=== PATIENT | female | born 1955 | race African-American/Black ===

== ENCOUNTER 2022-04-14 20:10 | Inpatient (IN) | payer OTHER ==
[2022-04-14] MEDS ORDERED: VANCOMYCIN 1 GM in D5W (PRE-DOCKED) 1,000 MG/250 ML IVPB ONE (21:55)
[2022-04-14] MEDS ORDERED: PIPERACILLIN/TAZOB 4.5 GM 4.5 GM in DEXTROSE 5%-WATER 100 ML IVPB ONE (21:55)
[2022-04-14] MEDS ORDERED: PIPERACILLIN/TAZOB 4.5 GM 4.5 GM/100 ML BAG IVPB ONE (23:13)
[2022-04-14 23:17] LABS: BASO % 1.4 % (0-2.0); EOS % 5.3 % (0-4.5); HEMATOCRIT 29.9 % (32.4-45.2); HEMOGLOBIN 9.7 GM/dL (10.7-15.3); LYMPH % 12.3 % (8-40); MCH 24.1 pg (25.7-33.7); MCHC 32.3 g/dl (32.0-36.0); MEAN CELL VOLUME 74.6 fl (80-96); MEAN PLT VOLUME 8.6 fl (7.5-11.1); MONO % 8.2 % (3.8-10.2); NEUT % 72.8 % (42.8-82.8); PLATELET COUNT 265 10^3/uL (134-434); RBC 4.01 M/mm3 (3.60-5.2); RDW 17.8 % (11.6-15.6); WHITE BLOOD COUNT 7.1 K/mm3 (4.0-10.0)
[2022-04-14 23:24] LABS: INR 1.22 (0.83-1.09); PROTHROMBIN TIME (PATIENT) 14.1 SEC (9.7-13.0)
[2022-04-14 23:26] LABS: ACTIVATED PTT 40.3 SECONDS (25.2-36.5)
[2022-04-14] MEDS ORDERED: RAPID SEQUENCE INTUBATION KIT NR ONE (23:27)
[2022-04-14] MEDS ORDERED: PROPOFOL 1,000,000 MCG/100 ML VIAL ONE (23:29)
[2022-04-14 23:35] LABS: CHLORIDE 119 mmol/L (98-107); SODIUM 142 mmol/L (136-145)
[2022-04-14 23:37] LABS: CALCIUM 7.9 mg/dL (8.5-10.1)
[2022-04-14 23:38] LABS: ALBUMIN 2.9 g/dl (3.4-5.0); ANION GAP 7 MMOL/L (8-16); BLOOD UREA NITROGEN 83.2 mg/dL (7-18); CO2 16 mmol/L (21-32); GLUCOSE,RANDOM 106 mg/dL (74-106)
[2022-04-14 23:41] LABS: CREATININE 3.6 mg/dL (0.55-1.3); SGOT/AST 25 U/L (15-37); SGPT/ALT 27 U/L (13-61)
[2022-04-14 23:43] LABS: BILIRUBIN,TOTAL 0.4 mg/dL (0.2-1); TOT PROT 8.2 g/dl (6.4-8.2)
[2022-04-14 23:44] LABS: ALK PHOS 475 U/L (45-117)
[2022-04-14 23:46] LABS: N-TERMINAL BNP 30063.4 pg/ml (5-125)
[2022-04-14 23:56] LABS: ERYTHROCYTE SEDIMENTATION RATE 51 mm/hr (0-30)
[2022-04-15] MEDS: PROPOFOL 1,000,000 MCG/100 ML VIAL IVPB SCH (00:01)
[2022-04-15] MEDS ORDERED: MIDAZOLAM IN 0.9 % SOD.CHLORID 1 MG/1 ML PLAST..BAG ONE (00:34)
[2022-04-15] MEDS ORDERED: FENTANYL NS IVPB 500 MCG/100 ML BAG IVPB ONE (00:35)
[2022-04-15] MEDS ORDERED: VANCOMYCIN 1 GM/200 ML PREMIX BAG IVPB ONE (01:00)
[2022-04-15] MEDS ORDERED: FUROSEMIDE INJECTION 100 MG in SODIUM CHLORIDE 90 ML IVPB SCH (01:00)
[2022-04-15] MEDS: FENTANYL NS IVPB 500 MCG/100 ML BAG IVPB SCH ×3 (01:21→21:00)
[2022-04-15] MEDS ORDERED: METOLAZONE 5 MG TABLET NR STA (07:26)
[2022-04-15 09:11] LABS: HEMATOCRIT 24.1 % (32.4-45.2); HEMOGLOBIN 7.7 GM/dL (10.7-15.3); MCH 23.8 pg (25.7-33.7); MCHC 31.8 g/dl (32.0-36.0); MEAN CELL VOLUME 74.9 fl (80-96); MEAN PLT VOLUME 8.6 fl (7.5-11.1); PLATELET COUNT 208 10^3/uL (134-434); RBC 3.22 M/mm3 (3.60-5.2); RDW 17.5 % (11.6-15.6); WHITE BLOOD COUNT 8.3 K/mm3 (4.0-10.0)
[2022-04-15 09:19] LABS: INR 1.37 (0.83-1.09); PROTHROMBIN TIME (PATIENT) 15.8 SEC (9.7-13.0)
[2022-04-15 09:22] LABS: ACTIVATED PTT 36.2 SECONDS (25.2-36.5)
[2022-04-15 09:43] LABS: MAGNESIUM 2.2 mg/dL (1.8-2.4)
[2022-04-15 09:44] LABS: BLOOD UREA NITROGEN 83.2 mg/dL (7-18)
[2022-04-15 09:46] LABS: CREATININE 3.5 mg/dL (0.55-1.3); PHOSPHOROUS 4.6 mg/dL (2.5-4.9)
[2022-04-15 09:47] LABS: CALCIUM 7.2 mg/dL (8.5-10.1)
[2022-04-15 09:51] LABS: N-TERMINAL BNP 29991.4 pg/ml (5-125)
[2022-04-15] MEDS ORDERED: PIPERACILLIN/TAZOB 4.5 GM 4.5 GM in DEXTROSE 5%-WATER 100 ML IVPB SCH (11:00)
[2022-04-15 11:03] LABS: ARTERIAL BLD GAS O2 SATURATION 98.6 % (95-98); ARTERIAL BLOOD GAS PO2 161.1 mmHg (80-100)
[2022-04-15 11:05] LABS: ALLENS TEST POSITIVE
[2022-04-15] MEDS: FUROSEMIDE 40 MG/4 ML INJECTABLE VIAL IVPUSH SCH ×2 (11:05→21:16)
[2022-04-15 11:06] LABS: VENT MODE A/C; VENT RATE 16
[2022-04-15] MEDS: MUPIROCIN 2% TOPICAL OINTMENT FOR DECOLONIZATION NS SCH ×2 (11:11→21:15)
[2022-04-15] MEDS: PANTOPRAZOLE SODIUM 40 MG VIAL IVPUSH SCH (11:11)
[2022-04-15] MEDS: INSULIN SLIDING SCALE (NOVOLOG) 1 VIAL SQ SCH ×3 (11:28→21:16)
[2022-04-15] MEDS ORDERED: SODIUM BICARBONATE 8.4% 50 MEQ/50 ML DISP.SYRIN IVPUSH ONE (11:30)
[2022-04-15] MEDS ORDERED: LACTULOSE 20 GM/30 ML UDC (FOR ORAL USE ONLY) PO PRN (11:37)
[2022-04-15] MEDS ORDERED: PIPERACILLIN/TAZOB 2.25 GM 2.25 GM in DEXTROSE 5%-WATER - 50 ML IVPB SCH (11:45)
[2022-04-15] MEDS ORDERED: SODIUM BICARBONATE 8.4% - 150 MEQ in DEXTROSE 5%-WATER - 950 ML IVPB ONE (12:00)
[2022-04-15 12:31] LABS: BILIRUBIN,DIRECT 0.2 mg/dL (0.0-0.2)
[2022-04-15 12:33] LABS: BILIRUBIN,TOTAL 0.3 mg/dL (0.2-1)
[2022-04-15 12:38] LABS: ALBUMIN 2.2 g/dl (3.4-5.0); TOT PROT 6.1 g/dl (6.4-8.2)
[2022-04-15] MEDS ORDERED: SODIUM BICARBONATE 8.4% 50 MEQ/50 ML DISP.SYRIN IVPUSH SCH (13:30)
[2022-04-15 13:44] LABS: ARTERIAL BLOOD GAS BASE EXCESS -11.5 mmol/L (-2-2); ARTERIAL BLOOD GAS PO2 175.1 mmHg (80-100); ARTERIAL BLOOD GAS pH 7.275 (7.350-7.450)
[2022-04-15 13:46] LABS: ALLENS TEST POSITIVE
[2022-04-15 13:47] LABS: VENT MODE A/C; VENT RATE 16
[2022-04-15] MEDS ORDERED: HEPARIN NA (PORCINE) 5,000 UNITS/ML 1ML VIAL SQ SCH (14:00)
[2022-04-15] MEDS ORDERED: INSULIN (NOVOLOG) ASPART 100 UNITS/ML 10ML VIAL ONE (14:21)
[2022-04-15] MEDS: PIPERACILLIN/TAZOB 2.25 GM 2.25 GM in DEXTROSE 5%-WATER - 50 ML IVPB SCH ×2 (15:05→21:15)
[2022-04-15 18:00] LABS: BASO % 0.6 % (0-2.0); EOS % 5.3 % (0-4.5); HEMATOCRIT 26.5 % (32.4-45.2); HEMOGLOBIN 8.5 GM/dL (10.7-15.3); LYMPH % 9.6 % (8-40); MCHC 32.2 g/dl (32.0-36.0); MEAN CELL VOLUME 74.6 fl (80-96); MEAN PLT VOLUME 8.6 fl (7.5-11.1); MONO % 10.4 % (3.8-10.2); NEUT % 74.1 % (42.8-82.8); PLATELET COUNT 206 10^3/uL (134-434); RBC 3.55 M/mm3 (3.60-5.2); RDW 17.8 % (11.6-15.6); WHITE BLOOD COUNT 6.7 K/mm3 (4.0-10.0)
[2022-04-15 18:19] LABS: CALCIUM 7.9 mg/dL (8.5-10.1)
[2022-04-15 18:20] LABS: ALBUMIN 2.4 g/dl (3.4-5.0); BLOOD UREA NITROGEN 86.1 mg/dL (7-18); MAGNESIUM 2.2 mg/dL (1.8-2.4)
[2022-04-15] MEDS: LACTULOSE 20 GM/30 ML UDC (FOR ORAL USE ONLY) GT SCH ×2 (18:20→21:15)
[2022-04-15 18:23] LABS: CREATININE 3.6 mg/dL (0.55-1.3)
[2022-04-15 18:25] LABS: BILIRUBIN,TOTAL 0.4 mg/dL (0.2-1)
[2022-04-15] MEDS: SODIUM BICARBONATE 8.4% 50 MEQ/50 ML DISP.SYRIN IVPUSH SCH (18:39)
[2022-04-15] MEDS: RIFAXIMIN 550 MG TABLET PO SCH (21:16)
[2022-04-15] MEDS: CHLORHEXIDINE GLUCONATE 4% CLEANSER FOR DECOLONIZATION TP SCH (21:16)
[2022-04-15] MEDS ORDERED: VANCOMYCIN 1 GM in D5W (PRE-DOCKED) 1,000 MG/250 ML IVPB ONE (23:33)
[2022-04-15] MEDS ORDERED: VANCOMYCIN/WATER FOR INJ (PEG) 1,000 MG/200 ML BAG IVPB ONE (23:45)
[2022-04-16] MEDS: PROPOFOL 1,000,000 MCG/100 ML VIAL IVPB SCH
[2022-04-16] MEDS: SODIUM BICARBONATE 8.4% 50 MEQ/50 ML DISP.SYRIN IVPUSH SCH ×3 (01:33→09:31)
[2022-04-16] MEDS: PIPERACILLIN/TAZOB 2.25 GM 2.25 GM in DEXTROSE 5%-WATER - 50 ML IVPB SCH ×4 (02:00→17:46)
[2022-04-16] MEDS: LACTULOSE 20 GM/30 ML UDC (FOR ORAL USE ONLY) GT SCH (05:47)
[2022-04-16] MEDS: INSULIN SLIDING SCALE (NOVOLOG) 1 VIAL SQ SCH ×4 (06:22→21:28)
[2022-04-16 06:50] LABS: ARTERIAL BLD GAS O2 SATURATION 99.1 % (95-98); ARTERIAL BLOOD GAS BASE EXCESS -8.5 mmol/L (-2-2); ARTERIAL BLOOD GAS PO2 176.9 mmHg (80-100); ARTERIAL BLOOD GAS pH 7.291 (7.350-7.450)
[2022-04-16 07:08] LABS: ALLENS TEST POSITIVE; VENT MODE 350
[2022-04-16 07:37] LABS: BASO % 0.9 % (0-2.0); EOS % 7.4 % (0-4.5); HEMATOCRIT 32.6 % (32.4-45.2); HEMOGLOBIN 10.5 GM/dL (10.7-15.3); LYMPH % 15.4 % (8-40); MCH 24.7 pg (25.7-33.7); MCHC 32.3 g/dl (32.0-36.0); MEAN CELL VOLUME 76.4 fl (80-96); MEAN PLT VOLUME 8.8 fl (7.5-11.1); MONO % 9.7 % (3.8-10.2); NEUT % 66.6 % (42.8-82.8); PLATELET COUNT 184 10^3/uL (134-434); RBC 4.27 M/mm3 (3.60-5.2); RDW 19.3 % (11.6-15.6); WHITE BLOOD COUNT 5.3 K/mm3 (4.0-10.0)
[2022-04-16 08:03] LABS: CALCIUM 7.8 mg/dL (8.5-10.1)
[2022-04-16 08:04] LABS: ALBUMIN 2.2 g/dl (3.4-5.0); BLOOD UREA NITROGEN 84.7 mg/dL (7-18)
[2022-04-16 08:05] LABS: PHOSPHOROUS 4.8 mg/dL (2.5-4.9)
[2022-04-16 08:07] LABS: BILIRUBIN,TOTAL 1.4 mg/dL (0.2-1); CREATININE 3.6 mg/dL (0.55-1.3); TOT PROT 6.3 g/dl (6.4-8.2)
[2022-04-16 08:13] LABS: INR 1.32 (0.83-1.09); PROTHROMBIN TIME (PATIENT) 15.2 SEC (9.7-13.0)
[2022-04-16 08:16] LABS: ACTIVATED PTT 38.2 SECONDS (25.2-36.5)
[2022-04-16] MEDS: MUPIROCIN 2% TOPICAL OINTMENT FOR DECOLONIZATION NS SCH ×2 (09:22→21:27)
[2022-04-16] MEDS: FUROSEMIDE 40 MG/4 ML INJECTABLE VIAL IVPUSH SCH ×2 (09:22→21:28)
[2022-04-16] MEDS: PANTOPRAZOLE SODIUM 40 MG VIAL IVPUSH SCH (09:22)
[2022-04-16] MEDS: RIFAXIMIN 550 MG TABLET PO SCH ×3 (09:24→21:43)
[2022-04-16] MEDS ORDERED: VANCOMYCIN/WATER FOR INJ (PEG) 750 MG/150 ML BAG IVPB SCH (10:00)
[2022-04-16] MEDS ORDERED: VANCOMYCIN 750 MG in DEXTROSE 5%-WATER - 150 ML IVPB SCH (10:00)
[2022-04-16] MEDS ORDERED: COLLAGENASE CLOSTRIDIUM HIST. 30 GRAMS TUBE TP SCH (10:00)
[2022-04-16 14:30] LABS: ARTERIAL BLD GAS O2 SATURATION 97.8 % (95-98); ARTERIAL BLOOD GAS BASE EXCESS -9.5 mmol/L (-2-2); ARTERIAL BLOOD GAS PO2 123.9 mmHg (80-100); ARTERIAL BLOOD GAS pH 7.219 (7.350-7.450)
[2022-04-16] MEDS: HEPARIN NA (PORCINE) 5,000 UNITS/ML 1ML VIAL SQ SCH ×2 (14:32→21:28)
[2022-04-16 14:34] LABS: ALLENS TEST POSITIVE
[2022-04-16 16:03] VITALS: BMI 22.6
[2022-04-16 17:14] LABS: ALLENS TEST POSITIVE; ARTERIAL BLD GAS O2 SATURATION 94.5 % (95-98); ARTERIAL BLOOD GAS BASE EXCESS -9.8 mmol/L (-2-2); ARTERIAL BLOOD GAS PO2 81.5 mmHg (80-100)
[2022-04-16] MEDS: CHLORHEXIDINE GLUCONATE 4% CLEANSER FOR DECOLONIZATION TP SCH (21:28)
[2022-04-16] MEDS: LACTULOSE 20 GM/30 ML UDC (FOR RECTAL USE ONLY) PR SCH (22:35)
[2022-04-17] MEDS: PIPERACILLIN/TAZOB 2.25 GM 2.25 GM in DEXTROSE 5%-WATER - 50 ML IVPB SCH ×3 (02:08→17:57)
[2022-04-17] MEDS: HEPARIN NA (PORCINE) 5,000 UNITS/ML 1ML VIAL SQ SCH ×4 (06:13→21:05)
[2022-04-17] MEDS: INSULIN SLIDING SCALE (NOVOLOG) 1 VIAL SQ SCH ×4 (06:14→21:51)
[2022-04-17 07:19] LABS: BASO % 0.3 % (0-2.0); HEMATOCRIT 30.8 % (32.4-45.2); HEMOGLOBIN 10.2 GM/dL (10.7-15.3); LYMPH % 5.4 % (8-40); MCH 25.1 pg (25.7-33.7); MEAN CELL VOLUME 75.9 fl (80-96); MEAN PLT VOLUME 8.8 fl (7.5-11.1); MONO % 5.7 % (3.8-10.2); NEUT % 87.6 % (42.8-82.8); PLATELET COUNT 173 10^3/uL (134-434); RBC 4.06 M/mm3 (3.60-5.2); RDW 19.4 % (11.6-15.6); WHITE BLOOD COUNT 12.7 K/mm3 (4.0-10.0)
[2022-04-17 07:40] LABS: CALCIUM 7.6 mg/dL (8.5-10.1)
[2022-04-17 07:41] LABS: ALBUMIN 2.4 g/dl (3.4-5.0); BLOOD UREA NITROGEN 83.8 mg/dL (7-18)
[2022-04-17 07:44] LABS: CREATININE 3.9 mg/dL (0.55-1.3); PHOSPHOROUS 5.8 mg/dL (2.5-4.9)
[2022-04-17 07:45] LABS: BILIRUBIN,TOTAL 0.8 mg/dL (0.2-1)
[2022-04-17] MEDS: LACTULOSE 20 GM/30 ML UDC (FOR RECTAL USE ONLY) PR SCH (08:26)
[2022-04-17] MEDS: SODIUM BICARBONATE 8.4% 50 MEQ/50 ML DISP.SYRIN IVPUSH SCH (09:52)
[2022-04-17] MEDS: FUROSEMIDE 40 MG/4 ML INJECTABLE VIAL IVPUSH SCH ×2 (09:52→21:05)
[2022-04-17] MEDS: MUPIROCIN 2% TOPICAL OINTMENT FOR DECOLONIZATION NS SCH ×2 (09:52→21:04)
[2022-04-17] MEDS: PANTOPRAZOLE SODIUM 40 MG VIAL IVPUSH SCH (09:52)
[2022-04-17] MEDS: RIFAXIMIN 550 MG TABLET PO SCH (11:19)
[2022-04-17] MEDS ORDERED: LACTULOSE 20 GM/30 ML UDC (FOR ORAL USE ONLY) PO PRN (12:52)
[2022-04-17] MEDS: SACUBITRIL/VALSARTAN 24 MG-26 MG TABLET PO SCH ×2 (15:06→21:05)
[2022-04-17] MEDS ORDERED: MELATONIN 5 MG TABLETS PO ONE (20:42)
[2022-04-17] MEDS: CHLORHEXIDINE GLUCONATE 4% CLEANSER FOR DECOLONIZATION TP SCH (21:08)
[2022-04-18] MEDS: PIPERACILLIN/TAZOB 2.25 GM 2.25 GM in DEXTROSE 5%-WATER - 50 ML IVPB SCH ×3 (01:01→18:34)
[2022-04-18] MEDS ORDERED: ACETAMINOPHEN 1000 MG/100 ML BAG IVPB ONE (02:50)
[2022-04-18] MEDS ORDERED: MELATONIN 5 MG TABLETS PO ONE (02:51)
[2022-04-18] MEDS ORDERED: QUEtiapine FUMARATE 25 MG TABLET PO ONE (03:11)
[2022-04-18] MEDS: HEPARIN NA (PORCINE) 5,000 UNITS/ML 1ML VIAL SQ SCH ×3 (06:15→22:17)
[2022-04-18] MEDS: INSULIN SLIDING SCALE (NOVOLOG) 1 VIAL SQ SCH ×4 (06:15→22:22)
[2022-04-18] MEDS ORDERED: FUROSEMIDE 40 MG/4 ML INJECTABLE VIAL ONE (08:00)
[2022-04-18] MEDS: PANTOPRAZOLE 40 MG TABLET PO SCH (09:07)
[2022-04-18] MEDS: SACUBITRIL/VALSARTAN 24 MG-26 MG TABLET PO SCH ×2 (09:07→23:18)
[2022-04-18] MEDS: SODIUM BICARBONATE 8.4% 50 MEQ/50 ML DISP.SYRIN IVPUSH SCH (09:08)
[2022-04-18] MEDS: LACTULOSE 20 GM/30 ML UDC (FOR ORAL USE ONLY) PO SCH (09:14)
[2022-04-18] MEDS ORDERED: VANCOMYCIN/WATER FOR INJ (PEG) 750 MG/150 ML BAG IVPB SCH ×2 (10:00)
[2022-04-18] MEDS ORDERED: INSULIN SLIDING SCALE (NOVOLOG) 1 VIAL SQ SCH (11:00)
[2022-04-18] MEDS: COLLAGENASE CLOSTRIDIUM HIST. 30 GRAMS TUBE TP SCH (12:51)
[2022-04-18] MEDS: FUROSEMIDE 40 MG/4 ML INJECTABLE VIAL IVPUSH SCH (15:02)
[2022-04-18] MEDS: THIAMINE HCL 100 MG TABLET (FP) PO SCH (17:00)
[2022-04-18] MEDS: AMINO ACIDS 4.25%/D5W 1,000 ML IV SCH (22:03)
[2022-04-18] MEDS: RIFAXIMIN 550 MG TABLET PO SCH (22:17)
[2022-04-19] MEDS: PIPERACILLIN/TAZOB 2.25 GM 2.25 GM in DEXTROSE 5%-WATER - 50 ML IVPB SCH ×3 (01:49→17:52)
[2022-04-19] MEDS: HEPARIN NA (PORCINE) 5,000 UNITS/ML 1ML VIAL SQ SCH ×4 (02:54→21:36)
[2022-04-19] MEDS: FUROSEMIDE 40 MG/4 ML INJECTABLE VIAL IVPUSH SCH ×2 (05:56→14:04)
[2022-04-19] MEDS: INSULIN SLIDING SCALE (NOVOLOG) 1 VIAL SQ SCH ×4 (06:01→21:36)
[2022-04-19] MEDS: SODIUM BICARBONATE 8.4% 50 MEQ/50 ML DISP.SYRIN IVPUSH SCH (09:54)
[2022-04-19] MEDS: SACUBITRIL/VALSARTAN 24 MG-26 MG TABLET PO SCH ×2 (09:57→21:36)
[2022-04-19] MEDS: MULTIVITAMINS (DAILY MVI) TABLET (FP) PO SCH (09:58)
[2022-04-19] MEDS: PANTOPRAZOLE 40 MG TABLET PO SCH (09:58)
[2022-04-19] MEDS: FOLIC ACID 1 MG TABLET (FP) PO SCH (09:58)
[2022-04-19] MEDS: RIFAXIMIN 550 MG TABLET PO SCH ×2 (09:58→21:36)
[2022-04-19] MEDS: THIAMINE HCL 100 MG TABLET (FP) PO SCH (09:58)
[2022-04-19] MEDS: COLLAGENASE CLOSTRIDIUM HIST. 30 GRAMS TUBE TP SCH (09:59)
[2022-04-19] MEDS: LACTULOSE 20 GM/30 ML UDC (FOR ORAL USE ONLY) PO SCH (09:59)
[2022-04-19 19:20] LABS: BASO % 0.4 % (0-2.0); EOS % 2.6 % (0-4.5); HEMATOCRIT 33.2 % (32.4-45.2); MCH 24.8 pg (25.7-33.7); MCHC 33.1 g/dl (32.0-36.0); MEAN CELL VOLUME 75.1 fl (80-96); MEAN PLT VOLUME 8.2 fl (7.5-11.1); MONO % 6.4 % (3.8-10.2); NEUT % 79.6 % (42.8-82.8); PLATELET COUNT 174 10^3/uL (134-434); RBC 4.42 M/mm3 (3.60-5.2); RDW 19.7 % (11.6-15.6); WHITE BLOOD COUNT 9.2 K/mm3 (4.0-10.0)
[2022-04-19 19:28] LABS: INR 1.4 (0.83-1.09); PROTHROMBIN TIME (PATIENT) 16.2 SEC (9.7-13.0)
[2022-04-19 19:43] LABS: CALCIUM 7.4 mg/dL (8.5-10.1)
[2022-04-19 19:45] LABS: MAGNESIUM 1.8 mg/dL (1.8-2.4)
[2022-04-19 19:47] LABS: CREATININE 4.5 mg/dL (0.55-1.3); PHOSPHOROUS 4.3 mg/dL (2.5-4.9)
[2022-04-19 19:48] LABS: BILIRUBIN,TOTAL 0.6 mg/dL (0.2-1); TOT PROT 6.6 g/dl (6.4-8.2)
[2022-04-19] MEDS: AMINO ACIDS 4.25%/D5W 1,000 ML IV SCH (21:35)
[2022-04-20] MEDS: PIPERACILLIN/TAZOB 2.25 GM 2.25 GM in DEXTROSE 5%-WATER - 50 ML IVPB SCH ×3 (02:08→18:12)
[2022-04-20] MEDS: FUROSEMIDE 40 MG/4 ML INJECTABLE VIAL IVPUSH SCH ×2 (06:26→14:43)
[2022-04-20] MEDS: INSULIN SLIDING SCALE (NOVOLOG) 1 VIAL SQ SCH ×3 (06:26→23:20)
[2022-04-20] MEDS: HEPARIN NA (PORCINE) 5,000 UNITS/ML 1ML VIAL SQ SCH ×4 (06:26→23:31)
[2022-04-20] MEDS: FOLIC ACID 1 MG TABLET (FP) PO SCH (10:04)
[2022-04-20] MEDS: SACUBITRIL/VALSARTAN 24 MG-26 MG TABLET PO SCH ×2 (10:04→23:20)
[2022-04-20] MEDS: LACTULOSE 20 GM/30 ML UDC (FOR ORAL USE ONLY) PO SCH (10:04)
[2022-04-20] MEDS: THIAMINE HCL 100 MG TABLET (FP) PO SCH (10:05)
[2022-04-20] MEDS: SODIUM BICARBONATE 8.4% 50 MEQ/50 ML DISP.SYRIN IVPUSH SCH (10:05)
[2022-04-20] MEDS: PANTOPRAZOLE 40 MG TABLET PO SCH (10:05)
[2022-04-20] MEDS: COLLAGENASE CLOSTRIDIUM HIST. 30 GRAMS TUBE TP SCH (10:05)
[2022-04-20] MEDS: MULTIVITAMINS (DAILY MVI) TABLET (FP) PO SCH (10:05)
[2022-04-20] MEDS: RIFAXIMIN 550 MG TABLET PO SCH ×2 (10:06→23:20)
[2022-04-20] MEDS ORDERED: metoPROLOL SUCCINATE 25 MG TAB.SR.24H (FP) PO SCH (16:00)
[2022-04-20] MEDS: METOPROLOL TARTRATE 25 MG TABLET (FP) PO SCH ×2 (16:18→23:20)
[2022-04-21] MEDS: AMINO ACIDS 4.25%/D5W 1,000 ML IV SCH ×2 (00:48)
[2022-04-21] MEDS: PIPERACILLIN/TAZOB 2.25 GM 2.25 GM in DEXTROSE 5%-WATER - 50 ML IVPB SCH ×3 (01:31→17:13)
[2022-04-21] MEDS: INSULIN SLIDING SCALE (NOVOLOG) 1 VIAL SQ SCH ×5 (06:23→22:55)
[2022-04-21] MEDS: HEPARIN NA (PORCINE) 5,000 UNITS/ML 1ML VIAL SQ SCH ×4 (06:23→22:55)
[2022-04-21] MEDS: FUROSEMIDE 40 MG/4 ML INJECTABLE VIAL IVPUSH SCH (06:23)
[2022-04-21] MEDS ORDERED: amLODIPine BESYLATE 5 MG TABLET (FP) PO SCH (10:00)
[2022-04-21] MEDS: LACTULOSE 20 GM/30 ML UDC (FOR ORAL USE ONLY) PO SCH (10:07)
[2022-04-21] MEDS: FOLIC ACID 1 MG TABLET (FP) PO SCH (10:07)
[2022-04-21] MEDS: RIFAXIMIN 550 MG TABLET PO SCH ×2 (10:07→22:55)
[2022-04-21] MEDS: METOPROLOL TARTRATE 25 MG TABLET (FP) PO SCH ×2 (10:07→22:55)
[2022-04-21] MEDS: MULTIVITAMINS (DAILY MVI) TABLET (FP) PO SCH (10:07)
[2022-04-21] MEDS: PANTOPRAZOLE 40 MG TABLET PO SCH (10:07)
[2022-04-21] MEDS: THIAMINE HCL 100 MG TABLET (FP) PO SCH (10:07)
[2022-04-21] MEDS: SACUBITRIL/VALSARTAN 24 MG-26 MG TABLET PO SCH ×2 (10:10→22:55)
[2022-04-21] MEDS: SODIUM BICARBONATE 8.4% 50 MEQ/50 ML DISP.SYRIN IVPUSH SCH (10:10)
[2022-04-21] MEDS: COLLAGENASE CLOSTRIDIUM HIST. 30 GRAMS TUBE TP SCH (10:10)
[2022-04-21] MEDS ORDERED: amLODIPine BESYLATE 5 MG TABLET (FP) PO ONE (16:31)
[2022-04-22] MEDS: PIPERACILLIN/TAZOB 2.25 GM 2.25 GM in DEXTROSE 5%-WATER - 50 ML IVPB SCH ×3 (02:43→17:51)
[2022-04-22] MEDS: HEPARIN NA (PORCINE) 5,000 UNITS/ML 1ML VIAL SQ SCH ×3 (06:39→22:58)
[2022-04-22] MEDS: INSULIN SLIDING SCALE (NOVOLOG) 1 VIAL SQ SCH ×4 (06:42→23:04)
[2022-04-22] MEDS: THIAMINE HCL 100 MG TABLET (FP) PO SCH (11:15)
[2022-04-22] MEDS: RIFAXIMIN 550 MG TABLET PO SCH ×2 (11:15→22:57)
[2022-04-22] MEDS: SACUBITRIL/VALSARTAN 24 MG-26 MG TABLET PO SCH ×2 (11:15→22:57)
[2022-04-22] MEDS: MULTIVITAMINS (DAILY MVI) TABLET (FP) PO SCH (11:15)
[2022-04-22] MEDS: METOPROLOL TARTRATE 25 MG TABLET (FP) PO SCH ×2 (11:15→22:57)
[2022-04-22] MEDS: PANTOPRAZOLE 40 MG TABLET PO SCH (11:15)
[2022-04-22] MEDS: FUROSEMIDE 40 MG/4 ML INJECTABLE VIAL IVPUSH SCH (11:15)
[2022-04-22] MEDS: LACTULOSE 20 GM/30 ML UDC (FOR ORAL USE ONLY) PO SCH (11:16)
[2022-04-22] MEDS: FOLIC ACID 1 MG TABLET (FP) PO SCH (11:16)
[2022-04-22] MEDS: amLODIPine BESYLATE 10 MG TABLET (FP) PO SCH (11:16)
[2022-04-22] MEDS: COLLAGENASE CLOSTRIDIUM HIST. 30 GRAMS TUBE TP SCH (11:17)
[2022-04-22] MEDS: MINERAL OIL/PET HY-PHL TOPICAL OINTMENT 454 GM JAR TP SCH (17:23)
[2022-04-22] MEDS: VANCOMYCIN 250 MG/5 ML ORAL SOLUTION PO SCH ×2 (17:49→23:09)
[2022-04-23] MEDS ORDERED: ACETAMINOPHEN 1000 MG/100 ML BAG IVPB ONE (00:03)
[2022-04-23] MEDS: PIPERACILLIN/TAZOB 2.25 GM 2.25 GM in DEXTROSE 5%-WATER - 50 ML IVPB SCH ×3 (01:43→17:13)
[2022-04-23] MEDS: HEPARIN NA (PORCINE) 5,000 UNITS/ML 1ML VIAL SQ SCH ×3 (06:52→22:11)
[2022-04-23] MEDS: VANCOMYCIN 250 MG/5 ML ORAL SOLUTION PO SCH (06:52)
[2022-04-23] MEDS: INSULIN SLIDING SCALE (NOVOLOG) 1 VIAL SQ SCH ×4 (06:56→22:11)
[2022-04-23] MEDS ORDERED: MINERAL OIL/PET HY-PHL TOPICAL OINTMENT 454 GM JAR TP SCH (10:00)
[2022-04-23] MEDS: RIFAXIMIN 550 MG TABLET PO SCH ×2 (11:08→22:11)
[2022-04-23] MEDS: FUROSEMIDE 40 MG/4 ML INJECTABLE VIAL IVPUSH SCH (11:08)
[2022-04-23] MEDS: amLODIPine BESYLATE 10 MG TABLET (FP) PO SCH (11:08)
[2022-04-23] MEDS: MULTIVITAMINS (DAILY MVI) TABLET (FP) PO SCH (11:08)
[2022-04-23] MEDS: PANTOPRAZOLE 40 MG TABLET PO SCH (11:09)
[2022-04-23] MEDS: SACUBITRIL/VALSARTAN 24 MG-26 MG TABLET PO SCH ×2 (11:09→22:27)
[2022-04-23] MEDS: THIAMINE HCL 100 MG TABLET (FP) PO SCH (11:09)
[2022-04-23] MEDS: FOLIC ACID 1 MG TABLET (FP) PO SCH (11:09)
[2022-04-23] MEDS: METOPROLOL TARTRATE 25 MG TABLET (FP) PO SCH ×2 (11:09→22:11)
[2022-04-23] MEDS: LACTULOSE 20 GM/30 ML UDC (FOR ORAL USE ONLY) PO SCH (11:10)
[2022-04-23] MEDS: COLLAGENASE CLOSTRIDIUM HIST. 30 GRAMS TUBE TP SCH (11:49)
[2022-04-23] MEDS: MINERAL OIL/PET HY-PHL TOPICAL OINTMENT 454 GM JAR TP SCH (11:51)
[2022-04-23] MEDS: LIDOCAINE 2.5%/PRILOCAINE 2.5% (5 Gram/TUBE) TP SCH ×2 (17:15→22:11)
[2022-04-23 18:25] LABS: CALCIUM 7.9 mg/dL (8.5-10.1)
[2022-04-23 18:26] LABS: BLOOD UREA NITROGEN 57.5 mg/dL (7-18)
[2022-04-23 18:29] LABS: CREATININE 3.9 mg/dL (0.55-1.3)
[2022-04-23 18:31] LABS: BILIRUBIN,TOTAL 0.4 mg/dL (0.2-1); TOT PROT 6.7 g/dl (6.4-8.2)
[2022-04-23] MEDS ORDERED: ACETAMINOPHEN 325 MG TABLET (FP) PO PRN (20:32)
[2022-04-23] MEDS ORDERED: INSULIN (NOVOLOG) ASPART 100 UNITS/ML 10ML VIAL ONE (22:09)
[2022-04-24] MEDS: PIPERACILLIN/TAZOB 2.25 GM 2.25 GM in DEXTROSE 5%-WATER - 50 ML IVPB SCH ×2 (02:38→11:34)
[2022-04-24] MEDS: HEPARIN NA (PORCINE) 5,000 UNITS/ML 1ML VIAL SQ SCH ×2 (05:43→13:10)
[2022-04-24] MEDS: INSULIN SLIDING SCALE (NOVOLOG) 1 VIAL SQ SCH ×2 (07:05→12:34)
[2022-04-24] MEDS ORDERED: FUROSEMIDE 40 MG TABLET (FP) PO SCH (10:00)
[2022-04-24 10:48] VITALS: BP 154/92; PULSE 82; RESP 20; TEMP 98
[2022-04-24] MEDS: MINERAL OIL/PET HY-PHL TOPICAL OINTMENT 454 GM JAR TP SCH (11:28)
[2022-04-24] MEDS: LACTULOSE 20 GM/30 ML UDC (FOR ORAL USE ONLY) PO SCH (11:29)
[2022-04-24] MEDS: LIDOCAINE 2.5%/PRILOCAINE 2.5% (5 Gram/TUBE) TP SCH (11:31)
[2022-04-24] MEDS: FOLIC ACID 1 MG TABLET (FP) PO SCH (11:32)
[2022-04-24] MEDS: SACUBITRIL/VALSARTAN 24 MG-26 MG TABLET PO SCH (11:32)
[2022-04-24] MEDS: THIAMINE HCL 100 MG TABLET (FP) PO SCH (11:33)
[2022-04-24] MEDS: amLODIPine BESYLATE 10 MG TABLET (FP) PO SCH (11:33)
[2022-04-24] MEDS: MULTIVITAMINS (DAILY MVI) TABLET (FP) PO SCH (11:33)
[2022-04-24] MEDS: PANTOPRAZOLE 40 MG TABLET PO SCH (11:33)
[2022-04-24] MEDS: METOPROLOL TARTRATE 25 MG TABLET (FP) PO SCH (11:33)
[2022-04-24] MEDS: RIFAXIMIN 550 MG TABLET PO SCH (11:34)
[2022-04-29 18:26] LABS: HIV INTERPRETATION NEGATIVE (NEGATIVE)
== END 2022-04-24 15:41 | disposition left against medical advice (07) | DRG 208 ==
LOC: JER 20:10 → JERBED 22:54 → JICU 04-15 00:19 → J5S 04-18 16:11 → J8W 04-23 19:09
PROVIDERS: ADMIT Internal Medicine Pulmonary Disease
PROC: 5A1945Z Respiratory Ventilation, 24-96 Consecutive Hours (ICD-10-PCS; principal; 2022-04-14)
PROC: 0BH17EZ Insertion of Endotracheal Airway into Trachea, Via Natural or Artificial Opening (ICD-10-PCS; 2022-04-14)
PROC: 5A12012 Performance of Cardiac Output, Single, Manual (ICD-10-PCS; 2022-04-14)
PROC: 30233N1 Transfusion of Nonautologous Red Blood Cells into Peripheral Vein, Percutaneous Approach (ICD-10-PCS; 2022-04-15)
DX: J96.01 Acute respiratory failure with hypoxia (principal); I46.9 Cardiac arrest, cause unspecified; J18.9 Pneumonia, unspecified organism; E87.20 Acidosis, unspecified; R18.8 Other ascites; I24.8 Other forms of acute ischemic heart disease; N17.9 Acute kidney failure, unspecified; M86.9 Osteomyelitis, unspecified; R78.81 Bacteremia; I50.22 Chronic systolic (congestive) heart failure; I13.0 Hypertensive heart and chronic kidney disease with heart failure and stage 1 through stage 4 chronic kidney disease, or unspecified chronic kidney disease; I16.1 Hypertensive emergency; I31.39 Other pericardial effusion (noninflammatory); K76.82 Hepatic encephalopathy; E11.621 Type 2 diabetes mellitus with foot ulcer; K74.60 Unspecified cirrhosis of liver; F20.9 Schizophrenia, unspecified; D64.9 Anemia, unspecified; L97.529 Non-pressure chronic ulcer of other part of left foot with unspecified severity; E11.69 Type 2 diabetes mellitus with other specified complication; N18.9 Chronic kidney disease, unspecified; I16.0 Hypertensive urgency; R00.1 Bradycardia, unspecified
CPT/HCPCS: 36415; 36430; 36600; 70450-TC; 71045-TC-FY; 71275-TC; 73610-TC-LT-FY; 73630-TC-LT; 74177-TC; 74230-TC-FY; 76700-TC; 80048; 80053; 80076; 82140; 82550; 82607; 82728; 82746; 82803; 82962; 82977; 83516; 83540; 83550; 83735; 83880; 84100; 84484; 85025; 85027; 85610; 85651; 85730; 86038; 86140; 86695; 86696; 86704; 86803; 86850; 86900; 86901; 86922; 87040; 87070; 87186; 87205; 87324; 87340; 87389; 87449; 87517; 92611-GN; 93005; 93010; 93225; 93226; 93306-TC; 93926-TC; 93970-TC; 94002; 97116-GP; 97162-GP; 99291; 99292; C9803-CS; G0480; J1644; P9058; Q9967; U0003; U0005